=== PATIENT | female | born 1980 | race Caucasian/White ===

== ENCOUNTER → 2017-01-10 | Outpatient (CLI) | payer OTHER ==
[~2017-01-10] MED LIST: AMIT25TA9 PO; CEPH-507 PO; CHOL100011 PO; CITA10TA PO; CLOT45CR46 TOP; CYCL10TA9 PO; DEPO PROVERA IM; FERR-57 PO; GBPN300C PO; HYDR25CA PO; NAPR-243 PO; OMEP20CA12 PO; ORUDIS PO; Omeprazole PO; PRD20T PO; SULF1TAB38 PO; TRM50T PO; VENL150C PO; [UNRECOGNIZED DRUG - OTHER]
== END ==
LOC: RAD 11:42
PROVIDERS: ATTEND Obstetrics & Gynecology
DX: R10.2 Pelvic and perineal pain (principal); Z30.431 Encounter for routine checking of intrauterine contraceptive device
CPT/HCPCS: 76856

== ENCOUNTER → 2017-01-29 | Outpatient (CLI) | payer OTHER ==
[~2017-01-29] MED LIST changes: +GADOBUTROL 10 MMOL/10 ML (GADAVIST) VIAL IV ONE
--- NOTE | 2017-01-29 14:22 | Diagnostic Imaging Report ---
PROCEDURE: MR imaging of the brain with and without contrast. TECHNIQUE: Multiplanar, multisequence MR imaging of the brain was performed with and without contrast. INDICATION: Chronic cluster headache. FINDINGS: There are no previous MRI examinations available for comparison. The CT head exam performed on 04/12/16 did note encephalomalacia of the frontal lobes bilaterally. This was felt to be related to the patient's previous history of trauma. The CT exam also noted a defect in the left occipital bone and there is seem to be encephalomalacia in this area as well. On the T2 axial series of this exam, the areas of encephalomalacia involving the frontal lobes and the cerebral hemisphere again evident. There also appeared to be areas of encephalomalacia in the anterior horns of both temporal lobes. In retrospect, these were also present on the prior exam. There is no abnormal enhancement on the postcontrast series to suggest a neoplastic or infectious process. There is no abnormal signal arising from the brain on the diffusion sequence to indicate an area of acute ischemia either. Furthermore, there is no signal abnormality in the periventricular white matter on the FLAIR series that would indicate demyelinating disease. The ventricles are not abnormally dilated and stable in size when compared to the prior exam. The sella is not enlarged and the expected carotid flow voids are evident bilaterally. The optic chiasm is undisturbed and the orbits are symmetrical and within normal limits. The sinuses are generally clear although there may be a very small amount of fluid layering within the dependent portion of the left maxillary antrum. The seventh and eighth nerve complexes are unremarkable. IMPRESSION: 1. There is no evidence for an acute intracranial abnormality and there is no sign of a mass lesion. 2. There are prominent areas of encephalomalacia involving both frontal lobes and to a lesser extent the anterior poles of both temporal lobes. There is also a small irregular area of encephalomalacia in the left cerebellar hemisphere. Most likely, these findings are a sequela of prior trauma. Dictated by: Dictated on workstation # [id number]
== END ==
LOC: RAD 11:19
PROVIDERS: ATTEND Nurse Practitioner Community Health
DX: G93.89 Other specified disorders of brain (principal); G44.029 Chronic cluster headache, not intractable; F48.2 Pseudobulbar affect
CPT/HCPCS: 70553

== ENCOUNTER → 2017-06-05 | Outpatient (CLI) | payer OTHER ==
[~2017-06-05] MED LIST changes: -GADOBUTROL 10 MMOL/10 ML (GADAVIST) VIAL IV ONE
--- NOTE | 2017-06-05 15:19 | Diagnostic Imaging Report ---
INDICATION: Lower back pain. COMPARISON: None FINDINGS: Frontal, lateral, and oblique views of the lumbar spine were obtained. Alignment and vertebral heights are maintained. There is no fracture or destructive process. Multilevel degenerative disease is noted in the lumbar spine. Limited views of the abdomen demonstrate nonobstructive bowel gas pattern. IMPRESSION: 1. No acute fracture or dislocation of the lumbar spine. Dictated by: Dictated on workstation # [id number]
== END ==
LOC: RAD 14:40
PROVIDERS: ATTEND Family Medicine
DX: M54.5 Low back pain (principal)
CPT/HCPCS: 72110

== ENCOUNTER → 2017-06-17 | Outpatient (CLI) | payer OTHER ==
--- NOTE | 2017-06-17 17:59 | Diagnostic Imaging Report ---
PROCEDURE: MRI lumbar spine. TECHNIQUE: Multiplanar, multisequence MRI of the lumbar spine was performed without contrast. INDICATION: Back pain. FINDINGS: There is normal height and alignment of the lumbar vertebral bodies. Disc spaces are well maintained. No disc herniation or bony stenosis is seen at any level. There is no nerve root impingement seen. There is no mass. There is no acute bony abnormality. IMPRESSION: No significant abnormality is seen. Dictated by: Dictated on workstation # [id number]
== END ==
LOC: RAD 17:13
PROVIDERS: ATTEND Nurse Practitioner Family
DX: M54.89 Other dorsalgia (principal)
CPT/HCPCS: 72148

== ENCOUNTER → 2017-12-05 | Outpatient (CLI) | payer OTHER ==
--- NOTE | 2017-12-05 13:17 | Diagnostic Imaging Report ---
INDICATION: Routine screening. COMPARISON: Comparison is made with prior mammogram from 10/10/2015. TECHNIQUE: 2D and 3D bilateral screening mammography was performed with computer-aided detection (CAD) system. FINDINGS: Both breasts remain heterogeneously dense, limiting the sensitivity of mammography. Previously noted cyst in the upper-outer left breast is no longer visualized. There is a new circumscribed density in the central left breast on the MLO view, image 20. This is seen on image 25 on the CC view. This may represent a cyst. Right breast is unremarkable. No suspicious calcifications are seen. The axillae are unremarkable. IMPRESSION: Circumscribed density in the central left breast, approximately 4 cm from the nipple. This may represent a cyst. Further evaluation with ultrasound is recommended. ACR BI-RADS Category 0: Incomplete. (Needs additional imaging evaluation). Result letter will be mailed to the patient. Note: At least 10% of breast cancer is not imaged by mammography. Dictated by: Dictated on workstation # [id number]
== END ==
LOC: RAD 09:29
PROVIDERS: ATTEND Obstetrics & Gynecology Gynecology
DX: Z12.31 Encounter for screening mammogram for malignant neoplasm of breast (principal)
CPT/HCPCS: 77067

== ENCOUNTER 2018-11-17 09:59 | Emergency (ER) | payer OTHER ==
[~2018-11-17] VITALS: Ht 170.2 cm; Wt 78.0 kg
[2018-11-17] MEDS ORDERED: ANTACID SUSP 30 ML UDC (MYLANTA) PO ONE (10:30)
[2018-11-17] MEDS ORDERED: LIDOCAINE 2% VISCOUS 15 ML UDC PO ONE (10:30)
--- NOTE | 2018-11-17 10:51 | NUR ---
NOT ANY BETTER AFTER GI COCKTAIL DR NOTIFIED.
[2018-11-17 10:55] LABS: BILIRUBIN,URINE NEGATIVE (NEGATIVE); CLARITY,URINE CLEAR; COLOR,URINE YELLOW; GLUCOSE, URINE (UA) NEGATIVE (NEGATIVE); KETONES,URINE NEGATIVE (NEGATIVE); LEUKOCYTE ESTERASE ,URINE NEGATIVE (NEGATIVE); NITRITE,URINE NEGATIVE (NEGATIVE); PH,URINE 6 (5-9); PROTEIN,URINE NEGATIVE (NEGATIVE); UROBILINOGEN,URINE NORMAL (NORMAL)
[2018-11-17 11:04] LABS: BACTERIA,URINE TRACE /HPF
--- NOTE | 2018-11-17 11:07 | ED Abdominal Pain ---
General Chief Complaint: Abdominal/GI Problems Stated Complaint: ABD PAIN;PELVIC PAIN Nursing Triage Note: AMB TO ROOM C/O ABD PAIN NO VOMITING OR DIARRHEA. ONSET 3AM TODAY. Sepsis Screen: No Definite Risk Source of Information: Patient Exam Limitations: No Limitations History of Present Illness Date Seen by Provider: Nov 17, 2018 Time Seen by Provider: 10:00 Initial Comments This 37-year-old woman presents to the emergency room with complaints of sharp epigastric pain rated as high as 9/10 that started around 03:00. She did have a bowel movement today that caused increased abdominal pain. She states the bowel movement was normal. She has had no nausea, vomiting, or diarrhea. She took Tums without benefit. She has a hysterectomy scheduled in about 2 weeks with a provider in [place]. The hysterectomy is planned because patient has had numerous ovarian cysts that have caused her problems and pain. She does occasionally drink alcohol and smoke. Her last alcohol consumption was on November 13. Her last oral intake was Gatorade on the way to the ER. She last ate at 20:00 when she ate a deli dog for supper. She is afebrile. Noe Guerra at [facility] is her primary care provider. Allergies and Home Medications Allergies Coded Allergies: No Known Drug Allergies (Unverified , 01/09/10) Home Medications Venlafaxine Hcl 150 Mg Cap.sr.24h, 1 EACH PO DAILY, (Reported) Patient Home Medication List Home Medication List Reviewed: Yes Review of Systems Review of Systems Constitutional: no symptoms reported EENTM: No Symptoms Reported Respiratory: No Symptoms Reported Cardiovascular: No Symptoms Reported Gastrointestinal: See HPI Genitourinary: See HPI Musculoskeletal: no symptoms reported Skin: no symptoms reported Psychiatric/Neurological: No Symptoms Reported Endocrine: No Symptoms Reported Hematologic/Lymphatic: No Symptoms Reported Past Issswkd-Ctawna-Vvqrsy Hx Past Med/Social Hx: Reviewed and Corrections made Patient Social History Alcohol Use: Occasionally Uses Recreational Drug Use: No Smoking Status: Current Someday Smoker Recent Foreign Travel: No Contact w/Someone Who Travel: No Recent Infectious Disease Expo: No Immunizations Up To Date Tetanus Booster (TDap): Unknown Past Medical History Surgeries: Yes (KNEE SURG) Cystectomy (ovarian), Oophorectomy (with salpingectomy), Orthopedic (knee), Tubal Ligation Respiratory: No Cardiac: No Neurological: Yes (traumatic head injury) Traumatic Brain Injury : No Reproductive Disorders: No Sexually Transmitted Disease: No HIV/AIDS: No Gastrointestinal: Yes Gastroesophageal Reflux Endocrine: No Cancer: No Psychosocial: Yes Anxiety Integumentary: No Blood Disorders: No Adverse Reaction/Blood Tranf: No Family Medical History Reviewed Nursing Family Hx Cancer Physical Exam Vital Signs Vital Signs - First Documented 11/17/18 10:03 Temp 98.0 Pulse 82 Resp 18 B/P (MAP) 120/72 (88) Pulse Ox 100 O2 Delivery Room Air Capillary Refill : Less Than 3 Seconds Height/Weight/BMI Height: 5'7.00" Weight: 172lbs. oz. 78.014513ln; 26.94 BMI Method:Stated General Appearance: WD/WN, no apparent distress HEENT: PERRL/EOMI, normal ENT inspection Neck: normal inspection Respiratory: lungs clear, normal breath sounds, no respiratory distress, no accessory muscle use Cardiovascular: regular rate, rhythm, no edema, no murmur Gastrointestinal: normal bowel sounds, soft, tenderness (moderate in the epigastrium and left upper quadrant, mild in the lower abdomen) Extremities: normal inspection, no pedal edema Neurologic/Psychiatric: sketcher II-XII nml as tested, no motor/sensory deficits, alert, normal mood/affect, oriented x 3 Skin: normal color, warm/dry Progress/Results/Core Measures Results/Orders Lab Results Laboratory Tests Test 11/17/18 10:48 11/17/18 11:38 Range/Units Urine Color YELLOW Urine Clarity CLEAR Urine pH 6 5-9 Urine Specific [place] 1.020 1.016-1.022 Urine Protein NEGATIVE NEGATIVE Urine Glucose (UA) NEGATIVE NEGATIVE Urine Ketones NEGATIVE NEGATIVE Urine Nitrite NEGATIVE NEGATIVE Urine Bilirubin NEGATIVE NEGATIVE Urine Urobilinogen NORMAL NORMAL MG/DL Urine Leukocyte Esterase NEGATIVE NEGATIVE Urine RBC (Auto) NEGATIVE NEGATIVE Urine RBC NONE /HPF Urine WBC NONE /HPF Urine Squamous Epithelial Cells 5-10 /HPF Urine Crystals NONE /LPF Urine Bacteria TRACE /HPF Urine Casts NONE /LPF Urine Mucus SMALL H /LPF Urine Culture Indicated NO Urine Test NEGATIVE NEGATIVE White Blood Count 6.8 4.3-11.0 10^3/uL Red Blood Count 4.64 4.35-5.85 10^6/uL Hemoglobin 13.5 11.5-16.0 G/DL Hematocrit 41 35-52 % Mean Corpuscular Volume 88 80-99 FL Mean Corpuscular Hemoglobin 29 25-34 PG Mean Corpuscular Hemoglobin Concent 33 32-36 G/DL Red Cell Distribution Width 13.0 10.0-14.5 % Platelet Count 148 130-400 10^3/uL Mean Platelet Volume 10.7 H 7.4-10.4 FL Neutrophils (%) (Auto) 64 42-75 % Lymphocytes (%) (Auto) 25 12-44 % Monocytes (%) (Auto) 10 0-12 % Eosinophils (%) (Auto) 1 0-10 % Basophils (%) (Auto) 0 0-10 % Neutrophils # (Auto) 4.4 1.8-7.8 X 10^3 Lymphocytes # (Auto) 1.7 1.0-4.0 X 10^3 Monocytes # (Auto) 0.7 0.0-1.0 X 10^3 Eosinophils # (Auto) 0.1 0.0-0.3 10^3/uL Basophils # (Auto) 0.0 0.0-0.1 10^3/uL Sodium Level 138 135-145 MMOL/L Potassium Level 3.8 3.6-5.0 MMOL/L Chloride Level 109 H 98-107 MMOL/L Carbon Dioxide Level 23 21-32 MMOL/L Anion Gap 6 5-14 MMOL/L Blood Urea Nitrogen 10 7-18 MG/DL Creatinine 0.70 0.60-1.30 MG/DL Estimat Glomerular Filtration Rate > 60 BUN/Creatinine Ratio 14 Glucose Level 78 70-105 MG/DL Calcium Level 9.0 8.5-10.1 MG/DL Corrected Calcium 9.0 8.5-10.1 MG/DL Total Bilirubin 0.3 0.1-1.0 MG/DL Aspartate Amino Transf (AST/SGOT) 16 5-34 U/L Alanine Aminotransferase (ALT/SGPT) 15 0-55 U/L Alkaline Phosphatase 51 40-136 U/L C-Reactive Protein High Sensitivity 0.25 0.00-0.50 MG/DL Total Protein 6.5 6.4-8.2 GM/DL Albumin 4.0 3.2-4.5 GM/DL Lipase 41 8-78 U/L My Orders Orders - SAVAGE BAHENA MD Ua Culture If Indicated (11/17/18 10:02) Lidocaine 2% Viscous 15 Ml (Xylocaine Vi (11/17/18 10:30) Antacid Suspension (Mylanta Suspension (11/17/18 10:30) Cbc With Automated Diff (11/17/18 10:50) Comprehensive Metabolic Panel (11/17/18 10:50) Hs C Reactive Protein (11/17/18 10:50) Lipase (11/17/18 10:50) Hcg,Qualitative Urine (11/17/18 11:57) Abdomen, Flat & Upright/Decub (11/17/18 12:26) Famotidine Injection (Pepcid Injection) (11/17/18 13:15) Medications Given in ED Current Medications Medications Dose Ordered Sig/Lraissa Route Start Time Stop Time Status Last Admin Dose Admin Al Hydrox/Mg Hydrox/Simethicone 30 ml ONCE ONCE PO 11/17/18 10:30 11/17/18 10:31 DC 11/17/18 10:24 30 ML Famotidine 20 mg ONCE ONCE IVP 11/17/18 13:15 11/17/18 13:16 DC 11/17/18 13:14 20 MG Lidocaine HCl 15 ml ONCE ONCE PO 11/17/18 10:30 11/17/18 10:31 DC 11/17/18 10:24 15 ML Vital Signs/I&O 11/17/18 11/17/18 10:03 13:16 Temp 98.0 Pulse 82 67 Resp 18 18 B/P (MAP) 120/72 (88) 115/75 (88) Pulse Ox 100 100 O2 Delivery Room Air Room Air Blood Pressure Mean: 88 Progress Progress Note #1: Time: 11:18 Progress Note A trial of GI cocktail did not improve her pain. UA was unremarkable. Labs are now being obtained. Progress Note #2: Time: 12:40 Progress Note Labs were unremarkable. Patient declines anything for pain. She reports pain is now 5/10. Options were reviewed. Risks and benefits of CT imaging were reviewed. Patient declines CT imaging. She would however like to pursue g allbladder ultrasound. She will be given an order to obtain the ultrasound when nothing by mouth for 6 hours. KUB and upright abdominal films were obtained and report is pending. Progress Note #3: Progress Note Patient returned later in the day when she was nothing by mouth for 6 hours to have gallbladder ultrasound performed. Ultrasound was negative and report was called to me. I communicated results to the patient by phone. Diagnostic Imaging Diagonstic Imaging: Xray Plain Films/CT/US/NM/MRI: abdomen, pelvis Comments KUB and upright x-ray viewed by me and report reviewed. See report below: NAME: BRUNILDA [facility]ANO [facility] REC#: [id number] PT STATUS: REG ER : 1980 PHYSICIAN: SAVAGE BAHENA MD ADMIT DATE: 11/17/18/ER Draft Date of Exam:11/17/18 ABDOMEN, FLAT & UPRIGHT/DECUB INDICATION: Abdominal pain. COMPARISON: 06/05/2017. FINDINGS: Supine and upright views the abdomen demonstrate nonobstructive small bowel gas pattern. Mild amount of air and stool are seen scattered throughout the colon. No abnormal air-fluid levels or large collection of free intraperitoneal air is seen. No abnormal extraosseous calcifications or radiopaque foreign bodies are identified. Bony structures are age-appropriate. IMPRESSION: 1. Nonobstructive small bowel gas pattern. Dictated on workstation # [id number] Dict: 11/17/18 1237 Trans: 11/17/18 1240 [id number] Interpreted by: JUJU RANDOLPH MD Diagonstic Imaging: Ultrasound Plain Films/CT/US/NM/MRI: abdomen Comments NAME: BRUNILDA [facility]UREANO [facility] REC#: [id number] PT STATUS: REG CLI : 1980 PHYSICIAN: SAVAGE BAHENA MD ADMIT DATE: 11/17/18/RAD Signed Date of Exam: 11/17/18 US GALLBLADDER [id number] PROCEDURE: US Gallbladder. TECHNIQUE: Multiple real-time grayscale images were obtained over the right upper quadrant in various projections. INDICATION: Upper abdominal pain. FINDINGS: The liver is normal in size at 13.3 cm. No discrete liver mass is identified. The portal vein is patent and shows normal direction of flow. The gallbladder is without stones or sludge. No wall thickening or biliary ductal dilatation is seen. Visualized pancreas is unremarkable. Right kidney is somewhat small at 6.8 cm in length, but no calculus or hydronephrosis is detected. There is no ascites. IMPRESSION: No evidence of cholelithiasis or acute cholecystitis. Dictated by: Dictated on workstation # [id number] Dict: 11/17/18 1612 Trans: 11/17/181838 Interpreted by: JOHN GODINEZ MD Electronically signed by: JOHN GODINEZ MD 11/17/181838 Departure Impression Primary Impression: Upper abdominal pain Disposition: 01 HOME, SELF-CARE Condition: Improved Departure-Patient Inst. Decision time for Depature: 12:41 Referrals: QUINN CORTEZ DO (PCP/Family) Primary Care Physician Patient Instructions: Acute Abdomen (Belly Pain), Adult (DC) Add. Discharge Instructions: Return at 3:30 p.m. for an ultrasound study. Check in at the registration desk. Do not eat or drink until after the ultrasound has been completed. Return to the ER if you have worsening symptoms. Otherwise, you may take Tylenol (acet aminophen) up to 1000 mg every 6 hours as needed for pain. Use an rflw-dss-xlobkjl antacid medication such as famotidine 20 mg twice a day or omeprazole 20 mg twice a day for the next 2 weeks. All discharge instructions reviewed with patient and/or family. Voiced understanding. Copy Copies To 1: KEITH MAHONEY JOSHUA T MD Nov 17, 2018 11:07
[2018-11-17 11:50] LABS: BASOPHILS % (AUTO) 0 % (0-10); EOSINOPHILS # (AUTO) 0.1 10^3/uL (0.0-0.3); EOSINOPHILS % (AUTO) 1 % (0-10); HEMATOCRIT 41 % (35-52); HEMOGLOBIN 13.5 G/DL (11.5-16.0); LYMPHOCYTES # (AUTO) 1.7 X 10^3 (1.0-4.0); LYMPHOCYTES % (AUTO) 25 % (12-44); MEAN CORPUSCULAR HEMOGLOBIN 29 PG (25-34); MEAN CORPUSCULAR HGB CONC 33 G/DL (32-36); MEAN CORPUSCULAR VOLUME 88 FL (80-99); MEAN PLATELET VOLUME 10.7 FL (7.4-10.4); MONOCYTES # (AUTO) 0.7 X 10^3 (0.0-1.0); MONOCYTES % (AUTO) 10 % (0-12); NEUTROPHILS # (AUTO) 4.4 X 10^3 (1.8-7.8); NEUTROPHILS % (AUTO) 64 % (42-75); PLATELET COUNT 148 10^3/uL (130-400); WHITE BLOOD COUNT 6.8 10^3/uL (4.3-11.0)
[2018-11-17 12:05] LABS: ALANINE AMINOTRANSFERASE 15 U/L (0-55); ALKALINE PHOSPHATASE 51 U/L (40-136); BILIRUBIN,TOTAL 0.3 MG/DL (0.1-1.0); BUN/CREATININE RATIO 14; CARBON DIOXIDE 23 MMOL/L (21-32); CHLORIDE 109 MMOL/L (98-107); GFR ESTIMATED > 60; GLUCOSE 78 MG/DL (70-105); LIPASE 41 U/L (8-78); POTASSIUM 3.8 MMOL/L (3.6-5.0); SODIUM 138 MMOL/L (135-145); TOTAL PROTEIN 6.5 GM/DL (6.4-8.2)
--- NOTE | 2018-11-17 12:41 | Diagnostic Imaging Report ---
INDICATION: Abdominal pain. COMPARISON: 06/05/2017. FINDINGS: Supine and upright views the abdomen demonstrate nonobstructive small bowel gas pattern. Mild amount of air and stool are seen scattered throughout the colon. No abnormal air-fluid levels or large collection of free intraperitoneal air is seen. No abnormal extraosseous calcifications or radiopaque foreign bodies are identified. Bony structures are age-appropriate. IMPRESSION: 1. Nonobstructive small bowel gas pattern. Dictated by: Dictated on workstation # [id number]
[2018-11-17] MEDS ORDERED: FAMOTIDINE 20MG/2ML IV (PEPCID) IVP ONE (13:15)
[2018-11-17 13:16] VITALS: BP 115/75
== END 2018-11-17 13:19 | disposition home or self-care (01) ==
LOC: EDUNIT# 09:59 → ER 10:00
DX: R10.13 Epigastric pain (principal); K21.9 Gastro-esophageal reflux disease without esophagitis; F41.9 Anxiety disorder, unspecified; F17.200 Nicotine dependence, unspecified, uncomplicated; Z90.710 Acquired absence of both cervix and uterus; Z90.6 Acquired absence of other parts of urinary tract; Z98.51 Tubal ligation status; Z87.820 Personal history of traumatic brain injury
CPT/HCPCS: 36415; 74019; 80053; 81000; 83690; 84703; 85025; 86141; 96374

== ENCOUNTER → 2018-11-17 | Outpatient (CLI) | payer OTHER ==
--- NOTE | 2018-11-17 16:16 | Diagnostic Imaging Report ---
PROCEDURE: US Gallbladder. TECHNIQUE: Multiple real-time grayscale images were obtained over the right upper quadrant in various projections. INDICATION: Upper abdominal pain. FINDINGS: The liver is normal in size at 13.3 cm. No discrete liver mass is identified. The portal vein is patent and shows normal direction of flow. The gallbladder is without stones or sludge. No wall thickening or biliary ductal dilatation is seen. Visualized pancreas is unremarkable. Right kidney is somewhat small at 6.8 cm in length, but no calculus or hydronephrosis is detected. There is no ascites. IMPRESSION: No evidence of cholelithiasis or acute cholecystitis. Dictated by: Dictated on workstation # [id number]
== END ==
LOC: RAD 15:35
PROVIDERS: ATTEND Family Medicine
DX: R10.10 Upper abdominal pain, unspecified (principal)
CPT/HCPCS: 76705

== ENCOUNTER → 2018-12-14 | Outpatient (CLI) | payer OTHER ==
--- NOTE | 2018-12-14 12:58 | Diagnostic Imaging Report ---
INDICATION: Screening The current study was also evaluated with a Computer Aided Detection (CAD) system. 3-D Tomographic imaging was also performed. Comparison made with prior examination from 12/05/2017 and 10/10/2015. FINDINGS: The fibroglandular tissue is heterogeneously dense bilaterally. There is a partially visualized circumscribed lesion in the superior aspect of the right breast on the MLO tomography images. There is no other dominant mass, spiculated lesion, or suspicious calcification identified. The skin, nipples, and axillae are unremarkable. IMPRESSION: Further imaging needed. Findings suspect for a well-circumscribed lesion in the superior aspect of the right breast in the MLO projection. Further evaluation with spot compression views and ultrasound is recommended. ACR BI-RADS Category 0: Incomplete. (Needs additional imaging evaluation). Result letter will be mailed to the patient. Note: At least 10% of breast cancer is not imaged by mammography. Dictated by: Dictated on workstation # [id number]
== END ==
LOC: RAD 08:26
PROVIDERS: ATTEND Obstetrics & Gynecology
DX: Z12.31 Encounter for screening mammogram for malignant neoplasm of breast (principal)
CPT/HCPCS: 77067

== ENCOUNTER → 2019-01-15 | Outpatient (CLI) | payer OTHER ==
--- NOTE | 2019-01-15 13:59 | Diagnostic Imaging Report ---
INDICATION: Right breast density. Patient presents for additional views. CORRELATION is made with a screening study from 12/14/2018. TECHNIQUE: Unilateral right 2-D and 3-D diagnostic mammography was performed including spot compression MLO and conventional 90 degree lateral view. FINDINGS: Distribution shows persistent circumscribed lesion approximately 3 cm posterior to the nipple at the nipple line on the spot compression view. There may be densities in the superior aspect of the right breast as well at mid depth. Further evaluation with ultrasound is recommended. No suspicious calcifications are seen. IMPRESSION: 1. Persistent circumscribed densities, likely cysts. Further evaluation with ultrasound is recommended and will be performed today. BI-RADS Category 0. ACR BI-RADS Category 0: Incomplete. (Needs additional imaging evaluation). Result letter will be mailed to the patient. Note: At least 10% of breast cancer is not imaged by mammography. Dictated by: Dictated on workstation # [id number]
--- NOTE | 2019-01-15 16:23 | Diagnostic Imaging Report ---
INDICATION: Right breast densities. CORRELATION is made with diagnostic mammogram earlier the same day. FINDINGS: Sonographic interrogation of the retroareolar and upper outer aspect of the right breast was performed. There are at least 2 simple appearing cysts in the right breast. A retroareolar cyst at approximately the 10 o'clock location measures 11 mm x 5 mm x 9 mm. There is an adjacent 8 mm cyst as well. A cyst at the 10 o'clock location 5 cm from the nipple measures 9 mm x 4 mm x 7 mm. No solid mass is detected. IMPRESSION: BI-RADS Category 2. Right breast cyst, likely accounting for the mammographic density. The patient may return to routine screening. Dictated by: Dictated on workstation # [id number]
== END ==
LOC: RAD 12:45
PROVIDERS: ATTEND Obstetrics & Gynecology
DX: N60.01 Solitary cyst of right breast (principal)

== ENCOUNTER 2020-03-25 15:13 | Emergency (ER) | payer OTHER ==
[~2020-03-25] VITALS: Ht 165 cm; Wt 77.0 kg
--- NOTE | 2020-03-25 15:34 | ED Lower Extremity ---
General Chief Complaint: Lower Extremity Stated Complaint: L FOOT INJ Nursing Triage Note: THE PT IS ASSISTED TO THE ROOM BY WHEELCHAIR. NO DISTRESS IS SEEN ON ARRIVAL. LOC IS NORMAL FOR THE PT. THIS IS A SPORTS INJURY. Nursing Sepsis Screen: No Definite Risk History of Present Illness Date Seen by Provider: Mar 25, 2020 Time Seen by Provider: 15:34 Initial Comments This is a 39-year-old female who presents to the ER for left ankle pain. States she was playing softball approximately 1.5-2hrs prior to arrival when another player slid into the side and top of her ankle. Reported immediate pain and difficulty ambulating. Decided to have it evaluated upon return from [place]. Currently rates pain 7 out of 10, sharp, worse with movement and weight bearing. Denies any previous injuries to the ankle or foot. Has not taking anything prior to arrival. No other concerns or complaints reported. Location Injury Occurred: 2 hours ago Pain/Injury Location: left ankle Allergies and Home Medications Allergies Coded Allergies: No Known Drug Allergies (Unverified , 01/09/10) Home Medications Venlafaxine Hcl 150 Mg Cap.sr.24h, 1 EACH PO DAILY, (Reported) Patient Home Medication List Home Medication List Reviewed: Yes Review of Systems Constitutional: no symptoms reported EENTM: no symptoms reported Respiratory: no symptoms reported Cardiovascular: no symptoms reported Gastrointestinal: no symptoms reported Genitourinary: no symptoms reported Musculoskeletal: see HPI Skin: no symptoms reported Psychiatric/Neurological: No Symptoms Reported Past Yklhorr-Pizuvq-Wfzolu Hx Patient Social History Recent Foreign Travel: No Contact w/Someone Who Travel: No Recent Infectious Disease Expo: No Physical Abuse: No Sexual Abuse: No Mistreated: No Fear: No Immunizations Up To Date Tetanus Booster (TDap): Unknown Past Medical History Surgeries: Yes (KNEE SURG) Cystectomy, Oophorectomy, Orthopedic, Tubal Ligation Respiratory: No Cardiac: No Neurological: Yes (traumatic head injury) Traumatic Brain Injury Reproductive Disorders: No Sexually Transmitted Disease: No HIV/AIDS: No Gastrointestinal: Yes Gastroesophageal Reflux Endocrine: No Cancer: No Psychosocial: Yes Anxiety Integumentary: No Blood Disorders: No Adverse Reaction/Blood Tranf: No Family Medical History Cancer Physical Exam Vital Signs Vital Signs - First Documented 03/25/20 15:27 Temp 36.7 Pulse 112 Resp 16 B/P (MAP) 105/65 (78) Pulse Ox 96 Capillary Refill : Less Than 3 Seconds Height, Weight, BMI Height: 5'7.00" Weight: 172lbs. oz. [id number]; 28.00 BMI Method:Stated General Appearance: WD/WN, no apparent distress HEENT: PERRL/EOMI, pharynx normal Neck: full range of motion, normal inspection Cardiovascular: regular rate, rhythm, no murmur Respiratory: lungs clear, normal breath sounds, no respiratory distress Gastrointestinal: normal bowel sounds, non tender, soft Back: normal inspection Ankles: left ankle limited range of motion, left ankle soft tissue tenderness, left ankle swelling, left ankle other (soft tissue swelling on the lateral aspect of the left ankle, no bruising appreciated at this time. ) Neurologic/Tendon: normal sensation, normal motor functions, normal tendon functions Neurologic/Psychiatric: no motor/sensory deficits, alert, normal mood/affect, oriented x 3 Progress/Results/Core Measures Results/Orders My Orders Orders - FIDEL RUTLEDGE SENIOR PRICING ANALYST Ankle, Left, 3 Views (03/25/20 15:35) Vital Signs/I&O 03/25/20 03/25/20 15:27 16:17 Temp 36.7 36.1 Pulse 112 100 Resp 16 16 B/P (MAP) 105/65 (78) 105/65 Pulse Ox 96 96 Blood Pressure Mean: 78 Progress Progress Note : Progress Note Images of the left ankle obtained, which showed no acute fractures or dislocations. Applied mike wrap to left ankle and ice pack. Neurovascular intact pre-and post-application of Mike bandage. Reviewed POC, and she is agreeable with plan. Departure Impression Primary Impression: Contusion of ankle Disposition: 01 HOME, SELF-CARE Condition: Stable/Unchanged Departure-Patient Inst. Decision time for Depature: 16:05 Referrals: [facility]/TONY (PCP) Primary Care Physician JAGRUTI SAAVEDRA (Family) Primary Care Physician Patient Instructions: Contusion (DC) Add. Discharge Instructions: Plan: 1. Discharge home. 2. Rest, ice 20 minutes at a time every couple of hours for swelling and pain, use mike wrap over the next 3 days, and keep elevated above your heart as much as possible. The most swelling will occur over the next 48-72 hours. 3. May take Tylenol or Ibuprofen as needed for pain per package directions. Do not take more than directed. 4. Follow up with your primary care provider if symptoms persist. All discharge instructions reviewed with patient and/or family. Voiced understanding. FIDEL RUTLEDGE SENIOR PRICING ANALYST Mar 25, 2020 15:34
--- NOTE | 2020-03-25 16:00 | Diagnostic Imaging Report ---
INDICATION: Pain and swelling. COMPARISON: None available. TECHNIQUE: 3 radiographs of the left ankle dated March 25, 2020. FINDINGS: No acute fracture or dislocation. No destructive osseous process. The talar dome is unremarkable. Ankle mortise is symmetric. Mild soft tissue swelling. IMPRESSION: No acute osseous abnormality with mild soft tissue swelling present. Dictated by: Dictated on workstation # [id number]
[2020-03-25 16:17] VITALS: BP 105/65
== END 2020-03-25 16:44 | disposition home or self-care (01) ==
LOC: EDUNIT# 15:13 → ER 15:14
DX: S90.02XA Contusion of left ankle, initial encounter (principal); F41.9 Anxiety disorder, unspecified; Z80.9 Family history of malignant neoplasm, unspecified; Z87.820 Personal history of traumatic brain injury; W50.0XXA Accidental hit or strike by another person, initial encounter; Y93.64 Activity, baseball
CPT/HCPCS: 73610

== ENCOUNTER 2021-12-28 01:45 | Emergency (ER) | payer BC ==
[~2021-12-28] VITALS: Ht 170.2 cm; Wt 81.6 kg
--- NOTE | 2021-12-28 02:13 | ED Upper Extremity ---
General Stated Complaint: FALL,L ARM/SHOULDER PAIN Source: patient, family (daughter) Exam Limitations: intoxication History of Present Illness Date Seen by Provider: Dec 28, 2021 Time Seen by Provider: 02:02 Initial Comments Patient is a 41-year-old female who presents to the emergency department with a chief complaint of left shoulder, left upper extremity pain after a fall this evening. Patient states that she has been drinking this evening, she had 7 beers and 2 shots. Daughter states that she had given her little water and some Doritos and then she went to bed. Shortly afterwards she heard her mom crying. She found her having had fallen on the hardwood floor. Patient states that she did not hit her head, no loss of consciousness. She has significant pain to the left shoulder and left mid upper arm. No numbness tingling or weakness to the hand. A little discomfort in her left elbow. No open wounds. All other review of systems reviewed and negative except as stated Onset: just prior to arrival Severity: severe Pain/Injury Location: left shoulder, left arm, left elbow Method of Injury: fell Modifying Factors: Worse With Movement Allergies and Home Medications Allergies Coded Allergies: No Known Drug Allergies (Unverified , 01/09/10) Patient Home Medication List Home Medication List Reviewed: Yes Venlafaxine Hcl (Effexor Xr) 150 Mg Cap.sr.24h, 1 EACH PO DAILY, (Reported) Entered as Reported by: JOHN EAST on 07/08/13 [id number] Review of Systems Constitutional: see HPI EENTM: no symptoms reported Respiratory: no symptoms reported Cardiovascular: no symptoms reported Gastrointestinal: no symptoms reported Musculoskeletal: joint pain (left shoulder, left arm) Skin: no symptoms reported All Other Systems Reviewed Negative Unless Noted: Yes Past Bpyrspy-Ecfjxu-Qtpqrh Hx Immunizations Up To Date Tetanus Booster (TDap): Unknown Past Medical History Surgeries: Yes (KNEE SURG) Cystectomy, Oophorectomy, Orthopedic, Tubal Ligation Respiratory: No Cardiac: No Neurological: Yes (traumatic head injury) Traumatic Brain Injury Reproductive Disorders: No Sexually Transmitted Disease: No HIV/AIDS: No Gastrointestinal: Yes Gastroesophageal Reflux Endocrine: No Cancer: No Psychosocial: Yes Anxiety Integumentary: No Blood Disorders: No Adverse Reaction/Blood Tranf: No Family Medical History Cancer Physical Exam Vital Signs Vital Signs - First Documented 12/28/21 02:01 Temp 36.4 Pulse 95 Resp 16 B/P (MAP) 115/77 (90) Pulse Ox 98 O2 Delivery Room Air Capillary Refill : Height, Weight, BMI Height: 5'7.00" Weight: 172lbs. oz. 78.047688sd; 28.00 BMI Method:Stated General Appearance: WD/WN, mild distress HEENT: PERRL/EOMI, other (injected conjunctivae bilaterally; swollen eyelids - consistent with crying) Neck: non-tender, full range of motion Cardiovascular: regular rate, rhythm Respiratory: lungs clear, normal breath sounds, no respiratory distress, no accessory muscle use Shoulder: limited ROM, pain, soft tissue tenderness, swelling (left shoulder and prox humerus) Elbow/Forearm: normal inspection, Left, limited ROM, soft tissue tenderness Wrist: Yes normal inspection, Yes non-tender, Yes no evidence of injury, Yes normal ROM Hand: normal inspection, non-tender, no evidence of injury, normal ROM, Left Neurologic/Tendon: normal sensation, normal motor functions, normal tendon functions Neurologic/Psychiatric: alert, oriented x 3, depressed affect Skin: normal color, warm/dry Progress/Results/Core Measures Results/Orders My Orders Orders - LANA LOCKHART MD Humerus, Left, 2 Views (12/28/21 02:10) Shoulder, Left, 3 Views (12/28/21 02:10) Vital Signs/I&O 12/28/21 02:01 Temp 36.4 Pulse 95 Resp 16 B/P (MAP) 115/77 (90) Pulse Ox 98 O2 Delivery Room Air Diagnostic Imaging Diagonstic Imaging: Xray Plain Films/CT/US/NM/MRI: chest Comments left humerus and shoulder xray: fracture through neck of humerus, non displaced; no dislocation (interpreted by me) Departure Impression Primary Impression: Shoulder fracture, left Qualified Codes: S42.92XA - Fracture of left shoulder girdle, part unspecified, initial encounter for closed fracture Additional Impression: Alcohol intoxication Qualified Codes: F10.920 - Alcohol use, unspecified with intoxication, unco mplicated Disposition: 01 HOME, SELF-CARE Condition: Stable Departure-Patient Inst. Decision time for Depature: 02:47 Referrals: [facility] (PCP) Primary Care Physician JAGRUTI SAAVEDRA (Family) Primary Care Physician ROCK,LEANN S SWEETIE PAULSON MD, MICHAEL P MD Patient Instructions: How to Use a Shoulder Sling, Shoulder Fracture Add. Discharge Instructions: Apply ice to the left shoulder 20 minutes at a time 3-4 times daily for the next 2 days. Pain medications as needed (prescribed hydrocodone). Do not take extra tylenol with Hydrocodone. Hydrocodone can cause constipation - take stool softeners if you are having to take the hydrocodone daily. Do not take hydrocodone and drive or with alcohol. Ibuprofen 600mg every 6 hours with food for pain. Wear the shoulder sling all the time until you follow up with the orthopedic doc tor. Return to the Emergency Department if you have any new, concerning or emergent complaints. Scripts Ondansetron (Ondansetron Odt) 4 Mg Tab.rapdis 4 MG PO Q8H PRN for nausea, #20 TAB Prov: LANA LOCKHART MD 12/28/21 Hydrocodone/Acetaminophen (Hydrocodone-Acetamin 5-325 mg) 5 Mg-325 Mg Tablet 1 TAB PO Q6H PRN for PAIN-MODERATE (5-7), #20 TAB Prov: LANA LOCKHART MD 12/28/21 Copy Copies To 1: SWEETIE BERMAN MD Copies To 2: KEITH MAHONEY KATHRYN M MD Dec 28, 2021 02:13
[2021-12-28 02:56] VITALS: BP 115/77
[2021-12-28] MEDS ORDERED: ONDA4TAB11 PO (02:56)
[2021-12-28] MEDS ORDERED: ACHD5005 PO (02:56)
--- NOTE | 2021-12-28 06:58 | Diagnostic Imaging Report ---
Indication: Left arm injury from a fall 2 views of left femur show nondisplaced fracture of the left humeral neck with longitudinal extension to the greater tuberosity. IMPRESSION: Comminuted fracture left proximal humerus with transverse component across the humeral neck and nondisplaced fracture of the greater tuberosity. Dictated by: Dictated on workstation # [id number]
--- NOTE | 2021-12-28 07:02 | Diagnostic Imaging Report ---
Indication: Left shoulder pain 3 views of the left shoulder show transverse fracture of the humeral neck and longitudinal fracture through the greater tuberosity. IMPRESSION: Comminuted nondisplaced fracture proximal left humerus Dictated by: Dictated on workstation # [id number]
== END 2021-12-28 03:11 | disposition home or self-care (01) ==
LOC: EDUNIT# 01:45 → ER 01:48
DX: S42.295A Other nondisplaced fracture of upper end of left humerus, initial encounter for closed fracture (principal); F10.129 Alcohol abuse with intoxication, unspecified; Z28.310 Unvaccinated for COVID-19; W19.XXXA Unspecified fall, initial encounter
CPT/HCPCS: 73030; 73060; 99283; A4565

== ENCOUNTER → 2022-01-08 | Outpatient (CLI) | payer SELFPAY ==
[~2022-01-08] MED LIST changes: +ACHD5005 PO; +ONDA4TAB11 PO
== END ==
LOC: ORTHO 08:19
PROVIDERS: ATTEND Orthopaedic Surgery
DX: S42.202A Unspecified fracture of upper end of left humerus, initial encounter for closed fracture (principal); X58.XXXA Exposure to other specified factors, initial encounter
CPT/HCPCS: 99203

== ENCOUNTER → 2022-01-22 | Outpatient (CLI) | payer BC, OTHER ==
--- NOTE | 2022-01-22 13:08 | Diagnostic Imaging Report ---
INDICATION: Left shoulder fracture, followup. TIME OF EXAM: 9:18 AM. COMPARISON: Prior left shoulder radiographs from 12/28/2021. FINDINGS: The fracture involving the neck of the humerus appears similar to the prior study. The fracture line remains clearly visible. The overall alignment is anatomic. The glenohumeral and acromioclavicular alignment is maintained. IMPRESSION: The proximal humerus fracture is stable when compared with the exam from 12/28/2021. The fracture line remains visible. Alignment is anatomic. Dictated by: Dictated on workstation # [id number]
== END ==
LOC: ORTHO 09:05
PROVIDERS: ATTEND Orthopaedic Surgery
DX: S42.92XD Fracture of left shoulder girdle, part unspecified, subsequent encounter for fracture with routine healing (principal); X58.XXXD Exposure to other specified factors, subsequent encounter
CPT/HCPCS: 73030; G0463; 99213

== ENCOUNTER → 2022-02-12 | Outpatient (CLI) | payer OTHER ==
--- NOTE | 2022-02-12 10:50 | Diagnostic Imaging Report ---
INDICATION: Fracture, follow-up TECHNIQUE: 2 views of the left shoulder CORRELATION STUDY: 01/22/2022 FINDINGS: Slightly impacted fractures at the left humeral head/neck is again demonstrated. Fracture line remains well visualized. Perhaps very slight sclerotic reparative change. Alignment unchanged. The acromioclavicular joint and glenohumeral joint are maintained. The visualized soft tissues are unremarkable. IMPRESSION: 1. Perhaps very slight interval healing of the slightly impacted left humeral head/neck fracture. Fracture line remains well-visualized. Alignment unchanged. Dictated by: Dictated on workstation # [id number]
== END ==
LOC: ORTHO 08:29
PROVIDERS: ATTEND Orthopaedic Surgery
DX: Z47.89 Encounter for other orthopedic aftercare (principal); S42.202D Unspecified fracture of upper end of left humerus, subsequent encounter for fracture with routine healing; X58.XXXD Exposure to other specified factors, subsequent encounter
CPT/HCPCS: 73030; G0463; 99213

== ENCOUNTER → 2022-03-14 | Outpatient (CLI) | payer OTHER ==
--- NOTE | 2022-03-14 08:41 | Diagnostic Imaging Report ---
INDICATION: Follow-up FINDINGS: There is partial healing with less distinct fracture line at the humeral head neck junction as well as decreased apparent sclerosis along the greater tuberosity with no adverse development. The alignment is anatomic. IMPRESSION: Proximal humeral fractures healing in anatomic alignment with no adverse change. Dictated by: Dictated on workstation # [id number]
== END ==
LOC: ORTHO 08:06
PROVIDERS: ATTEND Orthopaedic Surgery
DX: Z47.89 Encounter for other orthopedic aftercare (principal); S42.202D Unspecified fracture of upper end of left humerus, subsequent encounter for fracture with routine healing; X58.XXXD Exposure to other specified factors, subsequent encounter
CPT/HCPCS: 73030; G0463; 99213

== ENCOUNTER → 2022-05-14 | Outpatient (CLI) | payer OTHER | LOC: ORTHO 08:32 | PROVIDERS: ATTEND Orthopaedic Surgery | DX: S42.202D Unspecified fracture of upper end of left humerus, subsequent encounter for fracture with routine healing (principal); X58.XXXD Exposure to other specified factors, subsequent encounter | CPT/HCPCS: 99213 ==